=== PATIENT | female | born 1985 | race Two or more races ===

== ENCOUNTER 2022-02-06 10:12 | Outpatient (CLI) | payer OTHER | END 2022-02-06 10:14 | disposition home or self-care (01) | LOC: LAB 10:12 | PROVIDERS: ATTEND Specialist | DX: M32.19 Other organ or system involvement in systemic lupus erythematosus (principal); M35.1 Other overlap syndromes; E03.9 Hypothyroidism, unspecified; L40.0 Psoriasis vulgaris ==

== ENCOUNTER 2023-05-30 13:22 | Outpatient (CLI) | payer OTHER | END 2023-05-30 13:28 | disposition home or self-care (01) | LOC: MAMO-SONO 13:22 | PROVIDERS: ATTEND Specialist | DX: N60.01 Solitary cyst of right breast (principal); N60.02 Solitary cyst of left breast ==

== ENCOUNTER 2024-04-29 07:21 | Outpatient (CLI) | payer OTHER ==
[2024-04-29 08:11] LABS: HEMATOCRIT 36.6 % (36.0-45.00); HEMOGLOBIN 12.5 g/dL (12.0-15.00); MEAN CELL VOLUME 87.7 fL (80.00-100.00); MEAN CORPUSCULAR HEMOGLOBIN 29.9 pg (27.00-32.0); MEAN CORPUSCULAR HGB CONC 34.1 g/dl (32.0-36.0); PLATELET COUNT 300 K/uL (150-450); RED BLOOD COUNT 4.17 M/uL (4.00-6.00); RED CELL DISTRIBUTION WIDTH 13.1 % (11.5-14.5)
[2024-04-29 08:16] LABS: ERYTHROCYTE SEDIMENTATION RATE 13 mm/hr
[2024-04-29 09:02] LABS: ALBUMIN 3.7 gm/dL (3.4-5.0); BILIRUBIN TOTAL 0.4 mg/dL (0.3-1.2); CALCIUM 8.8 mg/dL (8.5-10.1); CREATININE SERUM 0.57 mg/dL (0.55-1.02); GFR 118.7; GLOBULINA 3.6 G/DL (2.4-3.5); POTASSIUM 3.65 mEq/L (3.5-5.1); TOTAL PROTEIN 7.3 gm/dL (6.4-8.2)
[2024-04-29 20:13] LABS: T4 TOTAL 9.42 UG/DL (4.8-13.9); TSH 2.42 uIU/mL (0.358-3.74)
[2024-04-30 09:05] LABS: COMPLEMENT C3 162 mg/dL (82-167); COMPLEMENT C4 33 mg/dL (12-38)
[2024-04-30 13:05] LABS: DNA AB DOUBLE STRABDED < 1 IU/mL (0-9); rnp 0.6 AI (0.0-0.9); smith ab < 0.2 AI (0.0-0.9)
== END 2024-04-29 07:29 | disposition home or self-care (01) ==
LOC: LAB 07:21
PROVIDERS: ATTEND Specialist
DX: M32.19 Other organ or system involvement in systemic lupus erythematosus (principal); I10 Essential (primary) hypertension; E03.9 Hypothyroidism, unspecified; E55.9 Vitamin D deficiency, unspecified

== ENCOUNTER 2024-06-18 14:12 | Outpatient (CLI) | payer OTHER | END 2024-06-18 14:17 | disposition home or self-care (01) | LOC: MAMO-SONO 14:12 | DX: N60.01 Solitary cyst of right breast (principal); N60.02 Solitary cyst of left breast; Z12.31 Encounter for screening mammogram for malignant neoplasm of breast ==

== ENCOUNTER 2024-07-07 13:31 | Outpatient (CLI) | payer OTHER | END 2024-07-07 13:32 | disposition home or self-care (01) | LOC: LAB 13:31 | PROVIDERS: ATTEND Specialist | DX: E55.9 Vitamin D deficiency, unspecified (principal) ==

== ENCOUNTER 2024-12-02 19:26 | Emergency (ER) | payer OTHER ==
[~2024-12-02] VITALS: Ht 157.5 cm; Wt 63.5 kg
[2024-12-02] MEDS ORDERED: KETOROLAC TROMETHAMINE 30 MG VIAL IM ONE (20:30)
[2024-12-02] MEDS ORDERED: DEXAMETHASONE SODIUM PHOSP/PF 10 MG/ML VIAL IV ONE (20:30)
[2024-12-02] MEDS ORDERED: ORPHENADRINE CITRATE 30 MG/ML AMPUL IM ONE (20:30)
[2024-12-02] MEDS ORDERED: PEPCID AC20 MG PO (20:41)
[2024-12-02] MEDS ORDERED: KETO10TA2 PO (20:41)
[2024-12-02] MEDS ORDERED: NORFLEX100MG PO (20:41)
[2024-12-02] MEDS ORDERED: KETOROLAC TROMETHAMINE 30 MG VIAL ONE (20:58)
[2024-12-02] MEDS ORDERED: ORPHENADRINE CITRATE 30 MG/ML AMPUL ONE (20:59)
[2024-12-02] MEDS ORDERED: DEXAMETHASONE SODIUM PHOSPHATE 4 MG/ML VIAL ONE (20:59)
== END 2024-12-02 22:09 | disposition home or self-care (01) ==
LOC: ER 19:26
DX: M62.838 Other muscle spasm (principal); M75.52 Bursitis of left shoulder